=== PATIENT | male | born 1995 | race Caucasian/White ===

== ENCOUNTER 2016-09-01 13:13 | Emergency (ER) | payer BC, OTHER ==
[2016-09-01 13:24] VITALS: BP 131/82; PULSE 107; RESP 18; TEMP 98.1; O2SAT 94
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
== END 2016-09-01 14:01 | disposition home or self-care (01) ==
DX: S09.90XA Unspecified injury of head, initial encounter (principal); J45.909 Unspecified asthma, uncomplicated; E10.9 Type 1 diabetes mellitus without complications; W22.8XXA Striking against or struck by other objects, initial encounter; Y99.8 Other external cause status; Y93.39 Activity, other involving climbing, rappelling and jumping off

== ENCOUNTER 2016-12-28 07:58 | Observation (INO) | payer OTHER ==
[2016-12-28 08:02] VITALS: RESP 16
[2016-12-28] MEDS ORDERED: NS 1,000 ML IV ONE ×5 (08:09→10:41)
[2016-12-28] MEDS ORDERED: ONDANSETRON 4 MG/2 ML VIAL IVP ONE (08:10)
--- NOTE | 2016-12-28 08:14 | EDPHY ---
H & P Stated Complaint: type 1 DM thinks he's dehydrated - Personal History Current Tetanus/Diphtheria Vaccine: Yes Current Tetanus Diphtheria and Acellular Pertussis (TDAP): Yes - Medical/Surgical History Hx Asthma: Yes Hx Chronic Respiratory Disease: No Hx Diabetes: Yes Hx Cardiac Disease: No Hx Renal Disease: No Hx Cirrhosis: No Hx Alcoholism: No Hx HIV/AIDS: No Hx Splenectomy or Spleen Trauma: No Other PMH: DM I - Social History Smoking Status: Never smoked Alcohol Use: Heavy Time Seen by Provider: 12/28/16 08:10 HPI/ROS: HPI: This is a 21-year-old male who presents with Chief Complaint: "think I am dehydrated" Location: Quality: Dehydration Duration: Less than 8 hours Signs and Symptoms: Positive nausea, no vomiting, no abdominal pain, no altered mental status, no polyuria, no dysuria, no fevers, no chills Timing: Gradual onset Severity: Moderate Context: Type 1 diabetic diagnosed at 8 years of age, has an insulin pump, college student from [place], [place] who was out yesterday at the football game in the heat admits he was drinking alcohol until around midnight. He checked his blood sugars at midnight was 200. Went to sleep and woke up feeling nauseous and dehydrated. Has not tried to drink any water or eat any food. Denies any hospitalizations for DKA in the past. Modifying Factors: Insulin Comment: ROS: Constitutional: No fever, no chills, no weight loss Eyes: No blurred vision Respiratory: No shortness of breath, no cough Cardiovascular: No chest pain Gastrointestinal: + nausea, no vomiting no diarrhea Genitourinary: No dysuria Extremities: No myalgias Neurologic: No weakness, no numbness Skin: No rashes Hematologic: No bruising, no bleeding MEDICAL/SURGICAL HISTORY: Type 1 diabetes. Denies any surgical history. (Tiffany Moreno) - Physical Exam Exam: CONSTITUTIONAL: Young adult white male, polite and cooperative, nontoxic in appearance, awake and alert, no obvious distress HEENT: Atraumatic and normocephalic, PERRL, EOMI. Tympanic membranes clear. Oropharynx clear, no exudate and moist pink mucosa. Airway patent. No lymphadenopathy. No meningismus. Cardiovascular: Normal S1/S2, mild tachycardia, regular rhythm, without murmur rub or gallop. PULMONARY/CHEST: Symmetrical and nontender. Clear to auscultation bilaterally Good air movement. No accessory muscle usage. ABDOMEN: Soft, nondistended, nontender, no rebound, no guarding, no peritoneal signs, no masses or organomegaly. No CVAT. EXTREMITIES: 2/2 pulses, no deformities, no clubbing, no cyanosis or edema. NEUROLOGICAL: no focal neuro deficits. GCS 15. SKIN: Warm and dry, no erythema. no rash. Good capillary refill. (Tiffany Moreno) Constitutional: Initial Vital Signs Temperature (C) 36.4 C 12/28/16 08:00 Heart Rate 106 H 12/28/16 08:00 Respiratory Rate 16 12/28/16 08:00 Blood Pressure 124/68 H 12/28/16 08:00 O2 Sat (%) 98 12/28/16 08:00 O2 Delivery Mode Room Air Allergies/Adverse Reactions: codeine Allergy (Verified 09/01/16 13:25) Medical Decision Making ED Course/Re-evaluation: Patient is to turn off insulin pump while in the emergency room Labs, urinalysis, IV fluids, IV medications ordered Will evaluate for diabetic ketoacidosis, acute kidney injury and electrolyte imbalances 810: Given 2 L normal saline, IV Zofran 840: Elevated anion gap and low CO2; potassium 5.5; given 5 units regular IV insulin and started on insulin gtt 940: FSBS 205 940: ED decision to consult for admission; Dr. Villela spoke with hospitalist who kindly accepts to admit patient to ICU and provide further care (Tiffany Moreno) Differential Diagnosis: Differential diagnosis includes hyperglycemia, diabetic ketoacidosis, electrolyte imbalance, acute kidney injury. (Tiffany Moreno) Other Provider: Independent physician evaluation I evaluated and participated in the management of the patient. I also evaluated the patient independently. My co-signature indicates that I have reviewed this chart and I agree with the findings and plan of care as documented. My personal H&P findings include: The patient is a type 1 diabetic on an insulin pump presents to the ED with intractable vomiting that began early in the morning. The patient reported that he did have fairly significant alcohol consumption yesterday. The patient reportedly stop drinking in the afternoon. The patient has had very well controlled blood sugars over the past week. The patient is on a basal insulin rate at approximately 1 unit/hour. EXAM General Appearance: Alert, no distress Eyes: Pupils equal and round no pallor or injection ENT, Mouth: Dry mucous membranes Respiratory: There are no retractions, lungs are clear to auscultation Cardiovascular: Slight tachycardia Gastrointestinal: Abdomen is soft and nontender, no masses, bowel sounds normal Neurological: A&O, normal motor function, normal sensory exam, normal cranial nerves Skin: Warm and dry, no rashes Musculoskeletal: Neck is supple nontender Extremities: symmetrical, full range of motion Discussion: Patient presents to the ED with hyperglycemia and an anion gap of 27. The patient had an IV established. He received 2 L of normal saline. He received 5 units of regular insulin. He will be started on an insulin drip. The patient 's insulin pump has been turned off in the emergency department. The patient's venous pH is 7.23. The patient does have ketones. He will require inpatient admission to the intensive care unit for further correction of his diabetic ketoacidosis. Consultation is made with the hospitalist service. The patient will be admitted by Dr. Bennett Childs. Re-evaluation at 10:00 a.m.: Blood pressure 115/70, heart rate 105, additional 1 L normal saline ordered Critical care time exclusive of procedures and exclusive of the PA's time was 35 minutes, performed by myself, Shay Villela MD. Patient presents to the ED with diabetic ketoacidosis and a pH is 7.23. The patient received aggressive rehydration. He was given an insulin bolus and started insulin drip per the DKA protocol. Th patient did have prolonged observation in the ED secondary to lack of immediate intensive care unit beds. (Shay Villela) - Data Points Laboratory Results: Laboratory Results 12/28/16 08:10 12/28/16 08:10 12/28/16 12/28/16 12/28/16 09:33 09:15 08:10 WBC RBC Hgb Hct MCV MCH MCHC RDW Plt Count MPV Neut % (Auto) Lymph % (Auto) [place] % (Auto) Eos % (Auto) Baso % (Auto) Nucleat RBC Rel Count Absolute Neuts (auto) Absolute Lymphs (auto) Absolute Monos (auto) Absolute Eos (auto) Absolute Basos (auto) Absolute Nucleated RBC Immature Gran % Immature Gran # VBG pH 7.23 L (7.31-7.42) Sodium 136 mEq/L mEq/L (134-144) Potassium 5.5 mEq/L H mEq/L (3.5-5.2) Chloride 97 mEq/L mEq/L (97-110) Carbon Dioxide 12 mEq/l L mEq/l (22-31) Anion Gap 27 mEq/L H mEq/L (8-16) BUN 20 mg/dL mg/dL (7-23) Creatinine 1.1 mg/dL mg/dL (0.7-1.3) Estimated GFR > 60 Glucose 304 mg/dL H mg/dL (70-100) POC Glucose 205 mg/dL H mg/dL (70-100) Calcium 10.1 mg/dL mg/dL (8.5-10.4) Phosphorus 5.0 mg/dL H mg/dL (2.5-4.5) Magnesium 2.0 mg/dL mg/dL (1.6-2.3) Beta-Hydroxybutyrate 6.28 mmol/L H mmol/L (0.02-0.27) 12/28/16 08:10 WBC 15.90 10^3/uL H 10^3/uL (3.80-9.50) RBC 5.37 10^6/uL 10^6/uL (4.40-6.38) Hgb 16.7 g/dL g/dL (13.7-17.5) Hct 47.6 % % (40.0-51.0) MCV 88.6 fL fL (81.5-99.8) MCH 31.1 pg pg (27.9-34.1) MCHC 35.1 g/dL g/dL (32.4-36.7) RDW 12.8 % % (11.5-15.2) Plt Count 264 10^3/uL 10^3/uL (150-400) MPV 9.5 fL fL (8.7-11.7) Neut % (Auto) 83.0 % H % (39.3-74.2) Lymph % (Auto) 9.7 % L % (15.0-45.0) [place] % (Auto) 6.2 % % (4.5-13.0) Eos % (Auto) 0.0 % L % (0.6-7.6) Baso % (Auto) 0.3 % % (0.3-1.7) Nucleat RBC Rel Count 0.0 % % (0.0-0.2) Absolute Neuts (auto) 13.21 10^3/uL H 10^3/uL (1.70-6.50) Absolute Lymphs (auto) 1.54 10^3/uL 10^3/uL (1.00-3.00) Absolute Monos (auto) 0.98 10^3/uL H 10^3/uL (0.30-0.80) Absolute Eos (auto) 0.00 10^3/uL L 10^3/uL (0.03-0.40) Absolute Basos (auto) 0.05 10^3/uL 10^3/uL (0.02-0.10) Absolute Nucleated RBC 0.00 10^3/uL 10^3/uL (0-0.01) Immature Gran % 0.8 % % (0.0-1.1) Immature Gran # 0.12 10^3/uL H 10^3/uL (0.00-0.10) VBG pH Sodium Potassium Chloride Carbon Dioxide Anion Gap BUN Creatinine Estimated GFR Glucose POC Glucose Calcium Phosphorus Magnesium Beta-Hydroxybutyrate Medications Given: Insulin Human Regular 100 unit / Miscellaneous Medication 1 ea/ Sodium Chloride 101 mls @ 3 mls/hr IV EDNOW ONE PRN Reason: Protocol Stop: 12/29/16 18:22 Last Admin: 12/28/16 09:21 Dose: 101 mls Discontinued Medications Sodium Chloride (Ns) 1,000 mls @ 0 mls/hr IV ONCE ONE; Wide Open PRN Reason: Protocol Stop: 12/28/16 08:10 Last Admin: 12/28/16 08:20 Dose: 1,000 mls Sodium Chloride (Ns) 1,000 mls @ 0 mls/hr IV ONCE ONE; Wide Open PRN Reason: Protocol Stop: 12/28/16 08:10 Last Admin: 12/28/16 08:20 Dose: 1,000 mls Sodium Chloride (Ns) 1,000 mls @ 0 mls/hr IV ONCE ONE PRN Reason: Wide Open Stop: 12/28/16 09:51 Last Admin: 12/28/16 09:51 Dose: 1,000 mls Insulin Human Regular (Humulin R) 5 unit IVP EDNOW ONE Stop: 12/28/16 08:44 Last Admin: 12/28/16 08:54 Dose: 5 units Ondansetron HCl (Zofran) 4 mg IVP EDNOW ONE Stop: 12/28/16 08:11 Last Admin: 12/28/16 08:20 Dose: 4 mg Point of Care Test Results: 12/28/16 09:33 POC Glucose 205 H Departure - Departure Disposition: [facility] Inpatient Acute Clinical Impression: DKA, type 1 Qualifiers: Diabetes mellitus complication detail: without coma Qualified Code(s): E10.10 - Type 1 diabetes mellitus with ketoacidosis without coma Condition: Good Referrals: [facility] [Other] - As per Instructions
[2016-12-28 08:23] LABS: % IMMATURE GRANULYOCYTES 0.8 % (0.0-1.1); ABSOLUTE IMMATURE GRANULOCYTES 0.12 10^3/uL (0.00-0.10); ADD DIFF? NO; ADD MORPH? NO; ADD SCAN? NO; ATYPICAL LYMPHOCYTE FLAG 0 (0-99); FRAGMENT RBC FLAG 0 (0-99); HEMATOCRIT 47.6 % (40.0-51.0); HEMOGLOBIN 16.7 g/dL (13.7-17.5); LEFT SHIFT FLG 10 (0-99); LIPEMIA HEMOLYSIS FLAG 90 (0-99); MEAN CELL HEMOGLOBIN 31.1 pg (27.9-34.1); MEAN CELL HEMOGLOBIN CONCENTR. 35.1 g/dL (32.4-36.7); MEAN CELL VOLUME 88.6 fL (81.5-99.8); MEAN PLATELET VOLUME 9.5 fL (8.7-11.7); PLATELET CLUMPS FLAG 0 (0-99); PLATELET COUNT 264 10^3/uL (150-400); RED BLOOD CELL COUNT 5.37 10^6/uL (4.40-6.38); RED CELL DISTRIBUTION WIDTH 12.8 % (11.5-15.2)
[2016-12-28 08:36] LABS: ANION GAP 27 mEq/L (8-16); CALCIUM 10.1 mg/dL (8.5-10.4); CARBON DIOXIDE 12 mEq/l (22-31); CHLORIDE 97 mEq/L (97-110); CREATININE 1.1 mg/dL (0.7-1.3); GLOMERULAR FILTRATION RATE > 60; GLUCOSE 304 mg/dL (70-100); POTASSIUM 5.5 mEq/L (3.5-5.2); SODIUM 136 mEq/L (134-144)
[2016-12-28] MEDS ORDERED: INSULIN REGULAR HUMAN 100 UNIT, COSIGN. REQUIRED 1 EA in NS 100 ML IV ONE (08:43)
[2016-12-28] MEDS ORDERED: INSULIN REGULAR HUMAN 100 UNIT/ML IVP ONE (08:43)
[2016-12-28 09:01] LABS: B-HYDROXYBUTYRATE 6.28 mmol/L (0.02-0.27)
[2016-12-28 10:48] VITALS: BP 115/70; PULSE 109; TEMP 97.7; O2SAT 95
[2016-12-28] MEDS ORDERED: INSULIN REGULAR HUMAN 100 UNIT/ML ONE (11:54)
[2016-12-28 12:00] LABS: COLOR PALE YELLOW; LEUKOCYTE ESTERASE,URINE NEGATIVE (NEGATIVE); NITRITE,URINE NEGATIVE (NEGATIVE)
[2016-12-28] MEDS ORDERED: INSULIN REGULAR HUMAN 100 UNIT/ML IVP PRN (12:04)
[2016-12-28] MEDS ORDERED: INSULIN REGULAR HUMAN 100 UNIT in NS 100 ML IV SCH (12:04)
--- NOTE | 2016-12-28 12:22 | GCON ---
[f rep st] CONSULTATION DIVIDEND DEPOSIT ENTRY CLERK CONSULTATION. DATE OF CONSULTATION: 12/28/2016 REASON FOR ADMISSION: DKA, hypovolemia. HISTORY OF PRESENT ILLNESS: The patient is an extremely pleasant 21-year-old white male with a past medical history of insulin-dependent diabetes, diagnosed at age 8. He presents feeling dehydrated. He was drinking alcohol at the football game last night. His blood sugar was reasonable around mi dnight at 200. He woke up feeling poorly and sought medical attention. On discussion, the patient states after hydration, he feels markedly improved. He denies any chest pain, pleuritic-type chest pain, or angina equivalent. No cough or productive sputum. No fever or night sweats. No dysuria. Again, he is resting comfortably. PAST MEDICAL HISTORY: Again, significant for insulin-dependent diabetes. He states it has been man y years since he has had DKA. PAST SURGICAL HISTORY: None. ALLERGIES: None to medications. SOCIAL HISTORY: No history of tobacco use. Infrequent alcohol use, though recently heavy. He is s alesha, without children. He is a college student. MEDICATIONS: At home, he is on an insulin pump. PHYSICAL EXAMINATION: VITAL SIGNS: Blood pressure 115/70, pulse 109, respirations 16, temperature 36.5, oxygen saturation 95% on room air. GENERAL: He is a well-developed, well-nourished 21-year-o ld white male, who is resting comfortably and in no acute distress. HEENT: Eyes are PERRLA. EOMI. Throat shows no erythema or tonsillar hypertrophy. NECK: Supple. There is no cervical adenopath y. HEART: Regular rate and rhythm, without murmurs, rubs, or gallops. LUNGS: Clear to auscultati on. No wheeze or rhonchi. ABDOMEN: Soft, nontender. Bowel sounds are present in all 4 quadrants. EXTREMITIES: No clubbing, cyanosis, or edema. LABORATORIES: White count 15.9, hemoglobin 16, hematocrit 47, platelet count 264. VBG: pH 7.23. Sodium 136, potassium 5.5, chloride 97, CO2 12, BUN 20, creatinine 1.1, glucose 304. Beta-hydroxybu tyrate is elevated at 6.28. His anion gap is still 27. IMPRESSION: 1. Diabetic ketoacidosis. Appears to be mild. 2. Hypovolemia with dehydration. RECOMMENDATIONS: 1. Continue aggressive hydration. 2. We will follow his chemistries closely. 3. DKA protocol. 4. Anticipate discharge to home soon. /[id number]/MODL
[2016-12-28] MEDS ORDERED: D5W 1/2 NS 1,000 ML IV SCH (12:30)
[2016-12-28] MEDS ORDERED: ONDANSETRON 4 MG/2 ML VIAL IVP PRN (13:13)
[2016-12-28] MEDS ORDERED: PROMETHAZINE HCL 25 MG/ML INJ IVP PRN (13:13)
[2016-12-28] MEDS ORDERED: ACETAMINOPHEN 325 MG TAB PO PRN (13:13)
[2016-12-28] MEDS ORDERED: ONDANSETRON DISINTEGRATING 4 MG TAB PO PRN (13:13)
[2016-12-28] MEDS ORDERED: PROMETHAZINE HCL 25 MG TAB PO PRN (13:13)
[2016-12-28 14:07] LABS: PCO2 VENOUS 32 mmHg (40-44); PH VENOUS BLOOD 7.33 (7.31-7.42); TCO2 VENOUS 18 mEq/L (23-27); VEN MEASURED OXYGEN SATURATION 74 % (65-75)
[2016-12-28 14:09] LABS: PO2 VENOUS 44 mmHg (35-40)
[2016-12-28 14:25] LABS: ALANINE AMINOTRANSFERASE 51 IU/L (21-72); ALKALINE PHOSPHATASE 93 IU/L (38-126); ANION GAP 15 mEq/L (8-16); ASPARTATE AMINOTRANSFERASE 68 IU/L (17-59); BILIRUBIN,TOTAL 1.5 mg/dL (0.1-1.4); CALCIUM 8.3 mg/dL (8.5-10.4); CARBON DIOXIDE 16 mEq/l (22-31); CHLORIDE 102 mEq/L (97-110); CREATININE 0.9 mg/dL (0.7-1.3); GLOMERULAR FILTRATION RATE > 60; GLUCOSE 148 mg/dL (70-100); POTASSIUM 4.3 mEq/L (3.5-5.2); SODIUM 133 mEq/L (134-144); TOTAL PROTEIN 6.6 g/dL (6.3-8.2)
--- NOTE | 2016-12-28 15:38 | PDGENHP ---
History and Physical - Chief Complaint Acute nausea - History of Present Illness primary care provider: In [place] HPI: 21-year-old male presents with acute nausea and associated feeling of dehydration with onset of symptoms on the morning of this presentation and persistent duration thereafter. He reports that the symptoms were significantly alleviated with IV fluids and antiemetics received in the emergency department. He reports that the symptoms began in the context of very little to eat on the afternoon prior to presentation, as well as several hours of alcohol consumption. While the patient was drinking alcohol, he forgot to check his insulin pump and forgot to administer insulin boluses. When he did check his pump at midnight, his glucometer read 200, and he did administer 1 bolus. He has records on his glucometer demonstrating his glucose results, as well as the increase in his basal rate over the evening and morning prior. He reports that he has never had an episode of diabetic ketoacidosis, and he had otherwise been feeling well prior to his presentation. 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 - Family History Additional family history: sister with urea cycle disorder - Social History Smoking Status: Never smoked Alcohol Use: Heavy Drug Use: None Additional social history: eh at [facility] Review of Systems ROS: 10pt was reviewed & negative except for what was stated in HPI & below Constitutional: Reports: other ( felt dehydrated) Gastrointestinal: Reports: nausea Physical Exam Temp Pulse Resp BP Pulse Ox 36.5 C 109 H 16 115/70 95 12/28/16 10:46 12/28/16 10:46 12/28/16 10:46 12/28/16 10:46 12/28/16 10:46 Constitutional: no apparent distress, appears nourished, not in pain Eyes: PERRL, anicteric sclera, EOMI Ears, Nose, Mouth, Throat: moist mucous membranes, hearing normal, ears appear normal, no oral mucosal ulcers Cardiovascular: regular rate and rhythym, no murmur, rub, or gallop, No edema Respiratory: no respiratory distress, no rales or rhonchi, clear to auscultation Gastrointestinal: normoactive bowel sounds, soft, non-tender abdomen, no palpable masses Genitourinary: no bladder fullness, no bladder tenderness Skin: warm, normal color, no rashes or abrasions, no fluctuance, no induration, other ( at the site of his insulin pump), No mottled Neurologic: AAOx3, sensation intact bilaterally, No weakness Psychiatric: interacting appropriately, not anxious, not encephalopathic, thought process linear Lab Data & Imaging Review 12/28/16 08:10 12/28/16 14:00 WBC 15.90 10^3/uL (3.80-9.50) H 12/28/16 08:10 RBC 5.37 10^6/uL (4.40-6.38) 12/28/16 08:10 Hgb 16.7 g/dL (13.7-17.5) 12/28/16 08:10 POC Hgb 13.6 gm/dL (13.7-17.5) L 12/28/16 11:32 Hct 47.6 % (40.0-51.0) 12/28/16 08:10 POC Hct 40 % (40-51) 12/28/16 11:32 MCV 88.6 fL (81.5-99.8) 12/28/16 08:10 MCH 31.1 pg (27.9-34.1) 12/28/16 08:10 MCHC 35.1 g/dL (32.4-36.7) 12/28/16 08:10 RDW 12.8 % (11.5-15.2) 12/28/16 08:10 Plt Count 264 10^3/uL (150-400) 12/28/16 08:10 MPV 9.5 fL (8.7-11.7) 12/28/16 08:10 Neut % (Auto) 83.0 % (39.3-74.2) H 12/28/16 08:10 Lymph % (Auto) 9.7 % (15.0-45.0) L 12/28/16 08:10 [place] % (Auto) 6.2 % (4.5-13.0) 12/28/16 08:10 Eos % (Auto) 0.0 % (0.6-7.6) L 12/28/16 08:10 Baso % (Auto) 0.3 % (0.3-1.7) 12/28/16 08:10 Nucleat RBC Rel Count 0.0 % (0.0-0.2) 12/28/16 08:10 Absolute Neuts (auto) 13.21 10^3/uL (1.70-6.50) H 12/28/16 08:10 Absolute Lymphs (auto) 1.54 10^3/uL (1.00-3.00) 12/28/16 08:10 Absolute Monos (auto) 0.98 10^3/uL (0.30-0.80) H 12/28/16 08:10 Absolute Eos (auto) 0.00 10^3/uL (0.03-0.40) L 12/28/16 08:10 Absolute Basos (auto) 0.05 10^3/uL (0.02-0.10) 12/28/16 08:10 Absolute Nucleated RBC 0.00 10^3/uL (0-0.01) 12/28/16 08:10 Immature Gran % 0.8 % (0.0-1.1) 12/28/16 08:10 Immature Gran # 0.12 10^3/uL (0.00-0.10) H 12/28/16 08:10 Puncture Site NONE GIVEN 12/28/16 14:00 Patient Temperature 37.0 DEGREES 12/28/16 14:00 VBG pH 7.33 (7.31-7.42) 12/28/16 14:00 VBG HCO3 17 mEQ/L (22-26) L 12/28/16 14:00 VBG Total CO2 18 mEq/L (23-27) L 12/28/16 14:00 VBG O2 Saturation 74 % (65-75) 12/28/16 14:00 VBG Base Excess -7.8 mEq/L (-2.5-2.5) L 12/28/16 14:00 Mixed VBG pCO2 32 mmHg (40-44) L 12/28/16 14:00 Mixed VBG pO2 44 mmHg (35-40) H 12/28/16 14:00 POC Sodium 140 mEq/L (134-144) 12/28/16 11:32 Sodium 133 mEq/L (134-144) L 12/28/16 14:00 POC Potassium 4.0 mEq/L (3.3-5.0) 12/28/16 11:32 Potassium 4.3 mEq/L (3.5-5.2) 12/28/16 14:00 POC Chloride 108 mEq/L (97-110) 12/28/16 11:32 Chloride 102 mEq/L (97-110) 12/28/16 14:00 Carbon Dioxide 16 mEq/l (22-31) L 12/28/16 14:00 Anion Gap 15 mEq/L (8-16) 12/28/16 14:00 POC BUN 17 mg/dL (7-23) 12/28/16 11:32 BUN 15 mg/dL (7-23) 12/28/16 14:00 Creatinine 0.9 mg/dL (0.7-1.3) 12/28/16 14:00 POC Creatinine 0.8 mg/dL (0.7-1.3) 12/28/16 11:32 Estimated GFR > 60 12/28/16 14:00 Glucose 148 mg/dL (70-100) H 12/28/16 14:00 POC Glucose 163 mg/dL (70-100) H 12/28/16 11:32 Calcium 8.3 mg/dL (8.5-10.4) L D 12/28/16 14:00 Phosphorus 5.0 mg/dL (2.5-4.5) H 12/28/16 08:10 Magnesium 2.0 mg/dL (1.6-2.3) 12/28/16 08:10 Total Bilirubin 1.5 mg/dL (0.1-1.4) H 12/28/16 14:00 AST 68 IU/L (17-59) H 12/28/16 14:00 ALT 51 IU/L (21-72) 12/28/16 14:00 Alkaline Phosphatase 93 IU/L (38-126) 12/28/16 14:00 Total Protein 6.6 g/dL (6.3-8.2) 12/28/16 14:00 Albumin 4.0 g/dL (3.5-5.0) 12/28/16 14:00 Beta-Hydroxybutyrate 6.28 mmol/L (0.02-0.27) H 12/28/16 08:10 Urine Color PALE YELLOW 12/28/16 11:44 Urine Appearance CLEAR 12/28/16 11:44 Urine pH 5.0 (5.0-7.5) 12/28/16 11:44 Ur Specific [place] 1.020 (1.002-1.030) 12/28/16 11:44 Urine Protein NEGATIVE (NEGATIVE) 12/28/16 11:44 Urine Ketones 2+ (NEGATIVE) H 12/28/16 11:44 Urine Blood NEGATIVE (NEGATIVE) 12/28/16 11:44 Urine Nitrate NEGATIVE (NEGATIVE) 12/28/16 11:44 Urine Bilirubin NEGATIVE (NEGATIVE) 12/28/16 11:44 Urine Urobilinogen NEGATIVE EU (0.2-1.0) 12/28/16 11:44 Ur Leukocyte Esterase NEGATIVE (NEGATIVE) 12/28/16 11:44 Urine RBC 1-3 /hpf (0-3) 12/28/16 11:44 Urine WBC 1-3 /hpf (0-3) 12/28/16 11:44 Ur Epithelial Cells TRACE /lpf (NONE-1+) 12/28/16 11:44 Urine Glucose 3+ (NEGATIVE) H 12/28/16 11:44 Assessment & Plan Assessment: 21-year-old male presents with acute diabetic ketoacidosis Plan: 1. Diabetic ketoacidosis. Acute, new problem this provider, further workup indicated. Evidenced by beta hydroxybutyrate elevated, pH 7.23, anion gap 27, glucose level 300 on presentation. Most likely etiology is alcohol consumption as well as insufficient bolusing. Reviewed outside records including the emergency department report by Dr. Kareem Villela, reporting the patient received IV fluids as well as initiation of insulin drip. - discussed with Dr. Jair Joseph, he reports that the patient was placed on DKA protocol upon arriving to the intensive care unit - we have repeated his blood chemistry levels and demonstrates anion gap has closed, at 15 - recommend initiating patient's insulin pump, gauging result, rechecking serum chemistry levels thereafter - recommend the patient continue to see his outpatient assistant service manager in [place], establish primary care here in [place] 2. Metabolic acidosis. Acute, secondary to ketoacidosis, serum bicarbonate level 12, improved to 16, will continue to monitor 3. Hyponatremia. Acute, most likely secondary to reactive SIADH in the setting of hypovolemia and rapid volume resuscitation, continue to monitor on serum labs 4. Transaminitis. Most likely secondary to recent alcohol abuse, counseled patient to reduce his alcohol intake in the setting of diabetes to reduce complication risk Diet. Clear liquids, advance as tolerates once hungry Prophylaxis. Low risk patient, SCDs Code. Full Disposition. Anticipated discharge is either 12/28 versus 12/29, pending clinical stability of conditions outlined above.
[2016-12-29] MEDS ORDERED: Lisdexamfetamine Dimesylate [Vyvanse] 50 MG PO SCH (09:00)
== END 2016-12-28 15:45 | disposition home or self-care (01) ==
LOC: INTOOBSV 09:38 → F2N 10:58
PROVIDERS: ADMIT Internal Medicine; ATTEND Internal Medicine
DX: E10.10 Type 1 diabetes mellitus with ketoacidosis without coma (principal); E87.2 Acidosis; E87.1 Hypo-osmolality and hyponatremia; R74.0 Nonspecific elevation of levels of transaminase and lactic acid dehydrogenase [LDH]; E86.1 Hypovolemia; Z96.41 Presence of insulin pump (external) (internal); Z79.4 Long term (current) use of insulin
CPT/HCPCS: G0378 ×2; 82947-QW; 96365; 96366; J1815; J2405

== ENCOUNTER → 2018-06-19 | Outpatient (CLI) | payer OTHER ==
[~2018-06-19] MED LIST: IOPAMIDOL (ISOVUE 370) 100 ML BTL IV ONE
== END ==
LOC: FIMAGING 12:03
PROVIDERS: ATTEND Internal Medicine
DX: R07.81 Pleurodynia (principal); R91.1 Solitary pulmonary nodule
CPT/HCPCS: 82565-PO; Q9967